=== PATIENT | female | born 1965 | race Caucasian/White ===

== ENCOUNTER → 2019-02-28 | Outpatient (CLI) | payer BC, OTHER ==
--- NOTE | 2019-02-28 15:11 | REP ---
LEFT TOES, FIVE VIEWS: HISTORY: Injury. A faint linear lucency is present in the head of the proximal phalange of the 4th digit. This may represent a nondisplaced fracture. There is no dislocation. The joint spaces are normal in appearance. IMPRESSION: There is a faint linear lucency in the head of the 4th proximal phalange. This may represent a nondisplaced fracture. Electronically Signed by Hugh Senior MD 02/28/2019 03:12 P
== END ==
LOC: M WUC 13:54
PROVIDERS: ATTEND Physician Assistant
DX: M79.675 Pain in left toe(s) (principal)

== ENCOUNTER 2019-05-13 16:04 | Emergency (ER) | payer BC, OTHER ==
[~2019-05-13] VITALS: Ht 162.6 cm; Wt 76.4 kg
[2019-05-13 16:04] VITALS: BP 136/73
[2019-05-13] MEDS ORDERED: RABIES VACCINE HUMAN 2.5 INTERNATIONAL UNITS/ML VIAL (90675) IM ONE (16:30)
[2019-05-13] MEDS ORDERED: ADACEL/BOOSTRIX VACCINE (DIPHTH/PERTUSS/ACELL/TETANUS)0.5ML SYR (90715) IM ONE (17:45)
== END 2019-05-13 18:01 | disposition home or self-care (01) ==
LOC: M ED 16:04
DX: Z23 Encounter for immunization (principal); Z20.3 Contact with and (suspected) exposure to rabies; Y92.099 Unspecified place in other non-institutional residence as the place of occurrence of the external cause; Y93.89 Activity, other specified; Y99.9 Unspecified external cause status; Z72.0 Tobacco use; Z88.1 Allergy status to other antibiotic agents; Z88.8 Allergy status to other drugs, medicaments and biological substances; Z88.5 Allergy status to narcotic agent

== ENCOUNTER 2019-05-16 15:45 | Emergency (ER) | payer BC, OTHER ==
[~2019-05-16] VITALS: Ht 162.6 cm; Wt 76.4 kg
[2019-05-16 15:46] VITALS: BP 131/62
[2019-05-16] MEDS ORDERED: RABIES VACCINE HUMAN 2.5 INTERNATIONAL UNITS/ML VIAL (90675) IM ONE (17:00)
== END 2019-05-16 17:15 | disposition home or self-care (01) ==
LOC: M ED 15:45
DX: Z20.3 Contact with and (suspected) exposure to rabies (principal); Z23 Encounter for immunization

== ENCOUNTER → 2022-11-02 | Outpatient (REF) | payer BC, OTHER | LOC: M LAB REF 16:03 | PROVIDERS: ATTEND Physician Assistant | DX: J06.9 Acute upper respiratory infection, unspecified (principal) ==